=== PATIENT | female | born 1965 | race Caucasian/White ===

== ENCOUNTER 2018-01-17 20:55 | Emergency (ER) | payer BC ==
[2018-01-17] MEDS ORDERED: Ketorolac 30 MG/ML SDV IVPUSH ONE (21:12)
[2018-01-17] MEDS ORDERED: Sodium Chloride 0.9% 1,000 ML IV ONE (21:12)
--- NOTE | 2018-01-17 21:13 | EDM.PDOC ---
ED HPI GENERAL MEDICAL PROBLEM - General Chief Complaint: General Stated Complaint: UPPER RTSIDE PAIN Time Seen by Provider: 01/17/18 21:13 Source of Information: Reports: Patient - History of Present Illness INITIAL COMMENTS - FREE TEXT/NARRATIVE: HISTORY AND PHYSICAL: History of present illness: [Patient presents with cough and fever since yesterday she had an episode of nausea and dizziness just prior to arrival otherwise no actual vomiting chills sweats no chest pain shortness of breath headache dizziness or palpitation no bowel or urine symptoms Generally healthy female no chronic illness disease her medications while here in the ER she had recurrence complained of some discomfort into her left shoulder 1 out of 10 no distress this has been present for several days , this pain can be alleviated by stretching her arm above her head, 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 Past medical history: As per history of present illness and as reviewed below otherwise noncontributory. Surgical history: As per history of present illness and as reviewed below otherwise noncontributory. Social history: No reported history of drug or alcohol abuse. Family history: As per history of present illness and as reviewed below otherwise noncontributory. Physical exam: HEENT: Atraumatic, normocephalic, pupils reactive, negative for conjunctival pallor or scleral icterus, mucous membranes moist, throat clear, neck supple, nontender, trachea midline. Lungs: Clear to auscultation, breath sounds equal bilaterally, chest nontender. Heart: S1S2, regular, negative for clicks, rubs, or JVD. Abdomen: Soft, nondistended, nontender. Negative for masses or hepatosplenomegaly. Negative for costovertebral tenderness. Pelvis: Stable nontender. Genitourinary: Deferred. Rectal: Deferred. Extremities: Atraumatic, negative for cords or calf pain. Neurovascular unremarkable. Neuro: Awake, alert, oriented. Cranial nerves II through XII unremarkable. Cerebellum unremarkable. Motor and sensory unremarkable throughout. Exam nonfocal. Diagnostics: [CBC CMP UA amylase lipase troponin ] Therapeutics: [1 L normal saline Toradol 30 mg IV ] aspirin 324 mg chewable Levaquin 500 mg by mouth now Patient was offered observation admission for telemetry and rule out sepsis history her blood pressure did come down a little bit after fluid bolus but has maintained and returned to her baseline while here she states that normally she does run a little bit low but she is not certain what that his she is comfortable going home and desires to do so she will agrees to return if symptoms persist or worsen or new concerning symptoms develop Impression: Fever UTI] Definitive disposition and diagnosis as appropriate pending reevaluation and review of above. Upper back;left shoulder Pain Score (Numeric/FACES): 5 - Related Data Allergies Allergy/AdvReac Type Severity Reaction Status Date / Time No Known Allergies Allergy Verified 01/17/18 21:15 Home Meds: Home Meds . [No Known Home Meds] 02/27/14 [History] Past Medical History - Past Health History Medical/Surgical History: Denies Medical/Surgical History Social & Family History - Tobacco Use Second Hand Smoke Exposure: No - Alcohol Use Days Per Week of Alcohol Use: 0 - Recreational Drug Use Recreational Drug Use: No ED ROS GENERAL - Review of Systems Review Of Systems: ROS reveals no pertinent complaints other than HPI. ED EXAM, GENERAL - Physical Exam Exam: See Below Course - Vital Signs Last Recorded V/S: Last Vital Signs Temp 101.3 F H 01/17/18 23:35 Pulse 102 H 01/17/18 23:35 Resp 18 01/17/18 23:35 BP 111/57 L 01/17/18 23:35 Pulse Ox 96 01/17/18 23:35 - Orders/Labs/Meds Orders: Active Orders 24 hr Category Date Time Status EKG Documentation Completion [RC] STAT Care 01/17/18 21:12 Active Chest 2V [CR] Stat Exams 01/17/18 21:59 Taken CULTURE BLOOD [BC] Stat Lab 01/17/18 21:32 Received CULTURE BLOOD [BC] Stat Lab 01/17/18 21:43 Received CULTURE URINE [RM] Stat Lab 01/17/18 21:44 Received INFLUENZA A+B AG SCREEN [RM] Stat Lab 01/17/18 21:47 Ordered UA W/MICROSCOPIC [URIN] Stat Lab 01/17/18 21:44 Ordered Blood Culture x2 Reflex Set [OM.PC] Stat Oth 01/17/18 21:29 Ordered Labs: Laboratory Tests 01/17/18 01/17/18 01/17/18 Range/Units 21:43 21:43 21:43 WBC 12.37 H (4.0-11.0) K/uL RBC 4.72 (4.30-5.90) M/uL Hgb 13.8 (12.0-16.0) g/dL Hct 41.0 (36.0-46.0) % MCV 86.9 (80.0-98.0) fL MCH 29.2 (27.0-32.0) pg MCHC 33.7 (31.0-37.0) g/dL RDW Std Deviation 42.0 (28.0-62.0) fl RDW Coeff of Irving 13 (11.0-15.0) % Plt Count 214 (150-400) K/uL MPV 9.00 (7.40-12.00) fL Neut % (Auto) 78.9 (48.0-80.0) % Lymph % (Auto) 12.6 L (16.0-40.0) % Crowley % (Auto) 7.9 (0.0-15.0) % Eos % (Auto) 0.4 (0.0-7.0) % Baso % (Auto) 0.2 (0.0-1.5) % Neut # (Auto) 9.8 H (1.4-5.7) K/uL Lymph # (Auto) 1.6 (0.6-2.4) K/uL Crowley # (Auto) 1.0 H (0.0-0.8) K/uL Eos # (Auto) 0.1 (0.0-0.7) K/uL Baso # (Auto) 0.0 (0.0-0.1) K/uL Nucleated RBC % 0.0 /100WBC Nucleated RBCs # 0 K/uL Lactate 1.0 (0.20-2.00) mmol/L Sodium 136 (136-145) mmol/L Potassium 3.2 L (3.5-5.1) mmol/L Chloride 102 (98-107) mmol/L Carbon Dioxide 25.8 (21.0-32.0) mmol/L BUN 13 (7.0-18.0) mg/dL Creatinine 0.8 (0.6-1.0) mg/dL Est Cr Clr Drug Dosing 79.08 mL/min Estimated GFR (MDRD) > 60.0 ml/min Glucose 124 H (74-106) mg/dL Calcium 9.0 (8.5-10.1) mg/dL Total Bilirubin 0.3 (0.2-1.0) mg/dL AST 18 (15-37) IU/L ALT 20 (14-63) IU/L Alkaline Phosphatase 78 (46-116) U/L Troponin I < 0.050 (0.000-0.056) ng/mL Total Protein 7.3 (6.4-8.2) g/dL Albumin 3.8 (3.4-5.0) g/dL Globulin 3.5 (2.0-3.5) g/dL Albumin/Globulin Ratio 1.1 L (1.3-2.8) Amylase 48 (25-115) U/L Lipase 273 (73-393) U/L Urine Color Urine Appearance Urine pH (5.0-8.0) Ur Specific Franklin (1.001-1.035) Urine Protein (NEGATIVE) mg/dL Urine Glucose (UA) (NEGATIVE) mg/dL Urine Ketones (NEGATIVE) mg/dL Urine Occult Blood (NEGATIVE) Urine Nitrite (NEGATIVE) Urine Bilirubin (NEGATIVE) Urine Urobilinogen (<2.0) EU/dL Ur Leukocyte Esterase (NEGATIVE) Urine RBC (0-2/HPF) Urine WBC (0-5/HPF) Ur Epithelial Cells (NONE-FEW) Urine Bacteria (NEGATIVE) 01/17/18 Range/Units 21:44 WBC (4.0-11.0) K/uL RBC (4.30-5.90) M/uL Hgb (12.0-16.0) g/dL Hct (36.0-46.0) % MCV (80.0-98.0) fL MCH (27.0-32.0) pg MCHC (31.0-37.0) g/dL RDW Std Deviation (28.0-62.0) fl RDW Coeff of Irving (11.0-15.0) % Plt Count (150-400) K/uL MPV (7.40-12.00) fL Neut % (Auto) (48.0-80.0) % Lymph % (Auto) (16.0-40.0) % Crowley % (Auto) (0.0-15.0) % Eos % (Auto) (0.0-7.0) % Baso % (Auto) (0.0-1.5) % Neut # (Auto) (1.4-5.7) K/uL Lymph # (Auto) (0.6-2.4) K/uL Crowley # (Auto) (0.0-0.8) K/uL Eos # (Auto) (0.0-0.7) K/uL Baso # (Auto) (0.0-0.1) K/uL Nucleated RBC % /100WBC Nucleated RBCs # K/uL Lactate (0.20-2.00) mmol/L Sodium (136-145) mmol/L Potassium (3.5-5.1) mmol/L Chloride (98-107) mmol/L Carbon Dioxide (21.0-32.0) mmol/L BUN (7.0-18.0) mg/dL Creatinine (0.6-1.0) mg/dL Est Cr Clr Drug Dosing mL/min Estimated GFR (MDRD) ml/min Glucose (74-106) mg/dL Calcium (8.5-10.1) mg/dL Total Bilirubin (0.2-1.0) mg/dL AST (15-37) IU/L ALT (14-63) IU/L Alkaline Phosphatase (46-116) U/L Troponin I (0.000-0.056) ng/mL Total Protein (6.4-8.2) g/dL Albumin (3.4-5.0) g/dL Globulin (2.0-3.5) g/dL Albumin/Globulin Ratio (1.3-2.8) Amylase (25-115) U/L Lipase (73-393) U/L Urine Color YELLOW Urine Appearance SLT CLOUDY Urine pH 5.5 (5.0-8.0) Ur Specific Franklin >= 1.030 (1.001-1.035) Urine Protein NEGATIVE (NEGATIVE) mg/dL Urine Glucose (UA) NEGATIVE (NEGATIVE) mg/dL Urine Ketones TRACE H (NEGATIVE) mg/dL Urine Occult Blood NEGATIVE (NEGATIVE) Urine Nitrite NEGATIVE (NEGATIVE) Urine Bilirubin NEGATIVE (NEGATIVE) Urine Urobilinogen 0.2 (<2.0) EU/dL Ur Leukocyte Esterase TRACE (NEGATIVE) Urine RBC 1-3 (0-2/HPF) Urine WBC 4-7 (0-5/HPF) Ur Epithelial Cells FEW (NONE-FEW) Urine Bacteria FEW (NEGATIVE) Meds: Medications Discontinued Medications Generic Name Dose Route Start Last Admin Trade Name Leena PRN Reason Stop Dose Admin Aspirin 324 mg 01/17/18 21:38 01/17/18 21:43 Aspirin PO 01/17/18 21:39 324 mg ONETIME ONE Administration Sodium Chloride 1,000 mls @ 999 mls/hr 01/17/18 21:12 01/17/18 21:38 Normal Saline IV 01/17/18 22:12 999 mls/hr STAT ONE Administration Ketorolac Tromethamine 30 mg 01/17/18 21:12 01/17/18 21:57 Toradol IVPUSH 01/17/18 21:13 30 mg ONETIME ONE Administration Levofloxacin 500 mg 01/17/18 23:47 01/17/18 23:51 Levaquin PO 01/17/18 23:48 500 mg ONETIME ONE Administration Departure - Departure Time of Disposition: 00:29 Disposition: Home, Self-Care 01 Condition: Good Clinical Impression: UTI (urinary tract infection) - Discharge Information Referrals: Esvin Olmos MD [Primary Care Provider] - Forms: ED Department Discharge Additional Instructions: Medication as prescribed Return if symptoms persist or worsen or new concerning symptoms develop such as vomiting chills sweats should these develop return to ER for reevaluation Follow-up with primary care in 2 weeks sooner as needed Blood cultures are pending at this time as discussed [facility] [address] [place] [address] The following information is given to patients seen in the emergency department who are being discharged to home. This information is to outline your options for follow-up care. We provide all patients seen in our emergency department with a follow-up referral. The need for follow-up, as well as the timing and circumstances, are variable depending upon the specifics of your emergency department visit. If you don't have a primary care physician on staff, we will provide you with a referral. We always advise you to contact your personal physician following an emergency department visit to inform them of the circumstance of the visit and for follow-up with them and/or the need for any referrals to a consulting specialist. The emergency department will also refer you to a specialist when appropriate. This referral assures that you have the opportunity for follow-up care with a specialist. All of these measure are taken in an effort to provide you with optimal care, which includes your follow-up. Under all circumstances we always encourage you to contact your private physician who remains a resource for coordinating your care. When calling for follow-up care, please make the office aware that this follow-up is from your recent emergency room visit. If for any reason you are refused follow-up, please contact the [facility] emergency department at and asked to speak to the emergency department charge nurse. - My Orders Last 24 Hours: My Active Orders 01/17/18 21:12 EKG Documentation Completion [RC] STAT 01/17/18 21:29 Blood Culture x2 Reflex Set [OM.PC] Stat 01/17/18 21:32 CULTURE BLOOD [BC] Stat 01/17/18 21:43 CULTURE BLOOD [BC] Stat 01/17/18 21:44 CULTURE URINE [RM] Stat UA W/MICROSCOPIC [URIN] Stat 01/17/18 21:47 INFLUENZA A+B AG SCREEN [RM] Stat 01/17/18 21:59 Chest 2V [CR] Stat - Assessment/Plan Last 24 Hours: My Active Orders 01/17/18 21:12 EKG Documentation Completion [RC] STAT 01/17/18 21:29 Blood Culture x2 Reflex Set [OM.PC] Stat 01/17/18 21:32 CULTURE BLOOD [BC] Stat 01/17/18 21:43 CULTURE BLOOD [BC] Stat 01/17/18 21:44 CULTURE URINE [RM] Stat UA W/MICROSCOPIC [URIN] Stat 01/17/18 21:47 INFLUENZA A+B AG SCREEN [RM] Stat 01/17/18 21:59 Chest 2V [CR] Stat
[2018-01-17] MEDS ORDERED: Aspirin 81 MG Tab.Chew PO ONE (21:38)
[2018-01-17 22:09] LABS: CHLORIDE,CL 102 mmol/L (98-107); SODIUM,NA 136 mmol/L (136-145)
[2018-01-17] MEDS ORDERED: Levofloxacin 500 MG Tab PO ONE (23:47)
--- NOTE | 2018-01-19 13:42 | CR ---
EXAM DATE: 01/17/18 PATIENT'S AGE: 52 Patient: JE WASHINGTON Facility: [place], [place] Site . Site : 1965 Study: XRay Chest [id number]/7/2018 10:54:38 PM Ordering Physician: Clayton Tao Final Report: INDICATION: Pain, cough, shortness of breath TECHNIQUE: Chest 2 views. COMPARISON: None FINDINGS: Cardiovascular and mediastinum: Heart size and vasculature are normal in caliber and appearance. Mediastinum is within normal limits. Lungs and pleural spaces: Lungs are clear. No sign of infiltrate or mass. No sign of pleural effusion. No pneumothorax. Bones and soft tissues: No significant findings. IMPRESSION: No sign of acute disease. Dictated by Quynh Aguayo MD @ Jan 17 2018 11:12PM (Electronic Signature) Report Signed by Proxy. [facility] SHOREMicha
== END 2018-01-18 00:35 | disposition home or self-care (01) ==
LOC: MW.ED 20:55
DX: N39.0 Urinary tract infection, site not specified (principal)
CPT/HCPCS: 36415; 71046; 80053; 81001; 82150; 83605; 83690; 84484; 85025; 87040; 87086; 87804; 93005; 96361; 96374; 99284; A9270; J1885; J7040; 99283

== ENCOUNTER 2020-04-19 22:59 | Emergency (ER) | payer BC, OTHER ==
[2020-04-19] MEDS ORDERED: Ketorolac 30 MG/ML SDV IM ONE (23:30)
--- NOTE | 2020-04-19 23:37 | EDM.PDOC ---
ED HPI GENERAL MEDICAL PROBLEM - General Chief Complaint: Lower Extremity Injury/Pain Stated Complaint: KNEE SWELLING Time Seen by Provider: 04/19/20 23:20 - History of Present Illness INITIAL COMMENTS - FREE TEXT/NARRATIVE: History of present illness: 55-year-old female presenting with left knee pain since yesterday. She apparently had a prior ACL injury which was never repaired. 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 Since then she has developed worsening pain and swelling of the knee. She had prior knee swelling which was tapped by an orthopedic surgeon in the past. He has not had any redness, fever or sweats, nor chills. She was able to complete the work-out including performed [employer]. She has been able to ambulate on the leg and knee without difficulty. Review of systems: As per history of present illness and below otherwise all systems reviewed and negative. Past medical history: As per history of present illness and as reviewed below otherwise noncontributory. ACL injury Surgical history: As per history of present illness and as reviewed below otherwise noncontributory. Left knee arthroscopy Social history: No reported history of drug or alcohol abuse. No tobacco Family history: As per history of present illness and as reviewed below otherwise noncontributory. Physical exam: GEN: no acute distress, well appearing HEENT: Atraumatic, normocephalic, mucous membranes moist, Neck: supple. Lungs: No respiratory distress. Heart: RRR Extremities: Left knee tenderness with mild swelling. Full range of motion of the left knee. No ligamentous instability. Lateral knee soft tissue tenderness. No bony tenderness. No erythema. No signs of infection or septic joint. Neurovascularly intact. Neuro: Awake, alert, oriented. Neuro Exam nonfocal. Skin: warm, dry, no lesions, no erythema Diagnostics: [] Therapeutics: [] MDM: Impression: [] Plan: [] Definitive disposition and diagnosis as appropriate pending reevaluation and review of above. left knee Pain Score (Numeric/FACES): 8 - Related Data Allergies Allergy/AdvReac Type Severity Reaction Status Date / Time No Known Allergies Allergy Verified 04/19/20 23:25 Home Meds: Home Meds . [No Known Home Meds] 02/27/14 [History] Past Medical History - Past Health History Medical/Surgical History: Denies Medical/Surgical History HEENT History: Reports: None [employer] History: Reports: Musculoskeletal History: Reports: None Neurological History: Reports: Migraines - Past Surgical History Head Surgeries/Procedures: Reports: None HEENT Surgical History: Reports: Oral Surgery Musculoskeletal Surgical History: Reports: Arthroscopic Knee Social & Family History - Family History Family Medical History: Noncontributory - Tobacco Use Smoking Status *Q: Never Smoker - Recreational Drug Use Recreational Drug Use: No Review of Systems - Review of Systems Review Of Systems: See Below (See HPI) ED EXAM, GENERAL - Physical Exam Exam: See Below (See HPI) Course - Vital Signs Text/Narrative:: Left knee pain/injury/Strain. Unlikely fracture. Patient declined x-rays. Possible repeat ligamentous injury as she had a prior ACL injury in the past that was never repaired. No signs of bony injury as the patient has been able to bear weight and has full and intact range of motion. X-ray not indicated at this time. No signs of infection, emergency department arthroscopy not indicated at this time. Will give pain control with IM Toradol and place compression dressing/George wrap and reassess. Patient felt much better after IM Toradol requested to be discharged home. Urgent referral was placed for orthopedics. George wrap/DME placed for knee sprain Last Recorded V/S: Last Vital Signs Temp 97 F 04/19/20 23:19 Pulse 92 04/19/20 23:19 Resp 19 04/19/20 23:19 BP 134/74 04/19/20 23:19 Pulse Ox 97 04/19/20 23:19 - Orders/Labs/Meds Orders: Active Orders 24 hr Category Date Time Status DME for Discharge [COMM] Stat Oth 04/19/20 23:45 Ordered Meds: Medications Discontinued Medications Generic Name Dose Route Start Last Admin Trade Name Freq PRN Reason Stop Dose Admin Ketorolac Tromethamine 30 mg 04/19/20 23:30 04/19/20 23:36 Toradol IM 04/19/20 23:31 30 mg ONETIME ONE Administration - Re-Assessments/Exams Free Text/Narrative Re-Assessment/Exam: 04/20/20 00:42 Patient is feeling much better. Her pain is well controlled. Compression wrap in place, will refer for orthopedic follow-up. Departure - Departure Time of Disposition: 00:42 Disposition: Home, Self-Care 01 Clinical Impression: Left knee sprain Qualifiers: Encounter type: initial encounter Involved ligament of knee: unspecified ligament Qualified Code(s): S83.92XA - Sprain of unspecified site of left knee, initial encounter - Discharge Information Instructions: Knee Sprain, Adult Referrals: PCP,None [Primary Care Provider] - Forms: ED Department Discharge Additional Instructions: Follow-up with orthopedic clinic as soon as possible to further evaluate your knee. You may keep the compression George wrap on for comfort. You may ice the area. You may take ibuprofen, 600 mg every 8 hours for the next 2 to 3 days and then as needed. The following information is given to patients seen in the emergency department who are being discharged to home. This information is to outline your options for follow-up care. We provide all patients seen in our emergency department with a follow-up referral. The need for follow-up, as well as the timing and circumstances, are variable depending upon the specifics of your emergency department visit. If you don't have a primary care physician on staff, we will provide you with a referral. We always advise you to contact your personal physician following an emergency department visit to inform them of the circumstance of the visit and for follow-up with them and/or the need for any referrals to a consulting specialist. The emergency department will also refer you to a specialist when appropriate. This referral assures that you have the opportunity for follow-up care with a specialist. All of these measure are taken in an effort to provide you with optimal care, which includes your follow-up. Under all circumstances we always encourage you to contact your private physician who remains a resource for coordinating your care. When calling for follow-up care, please make the office aware that this follow-up is from your recent emergency room visit. If for any reason you are refused follow-up, please contact the [facility] Emergency Department at and asked to speak to the emergency department charge nurse. [facility] Professional Building [address] [place] [address], [address] [place] [address] Sepsis Event Note (ED) - Evaluation Sepsis Screening Result: No Definite Risk - Focused Exam Vital Signs: Vital Signs Temp Pulse Resp BP Pulse Ox 04/19/20 23:19 97 F 92 19 134/74 97 - My Orders Last 24 Hours: My Active Orders 04/19/20 23:45 DME for Discharge [COMM] Stat - Assessment/Plan Last 24 Hours: My Active Orders 04/19/20 23:45 DME for Discharge [COMM] Stat
== END 2020-04-20 00:50 | disposition home or self-care (01) ==
LOC: MW.ED 22:59
DX: S83.92XA Sprain of unspecified site of left knee, initial encounter (principal); X50.1XXA Overexertion from prolonged static or awkward postures, initial encounter
CPT/HCPCS: 96372; 99283; J1885; 99282

== ENCOUNTER 2024-08-19 00:23 | Emergency (ER) | payer BC ==
[2024-08-19] MEDS: Pantoprazole 40 MG in Sodium Chloride 0.9% 10 ML IVPUSH ONE (00:46)
[2024-08-19] MEDS: Sodium Chloride 0.9% 10 ML Syringe FLUSH PRN (00:46)
[2024-08-19 00:53] LABS: BASOPHILS ABSOLUTE AUTO 0.05 K/uL (0.00-0.20); BASOPHILS PERCENT AUTO 0.7 % (0.0-1.0); EOSINOPHILS ABSOLUTE AUTO 0.09 K/uL (0.00-0.45); EOSINOPHILS PERCENT AUTO 1.3 % (0.0-6.0); HEMOGLOBIN 14.6 g/dL (12.0-16.0); IMMATURE GRAN ABSOLUTE AUTO 0.02 K/uL (0.00-0.05); IMMATURE GRAN PERCENT AUTO 0.3 % (0.0-0.4); LYMPHOCYTES PERCENT AUTO 40.9 % (24.0-44.0); MEAN CORPUSCULAR HEMOGLOBIN 30.2 pg (28.0-32.0); MEAN CORPUSCULAR HGB CONC 34.8 g/dL (32.0-36.0); MEAN PLATELET VOLUME 8.8 fL (9.4-12.3); MONOCYTES ABSOLUTE AUTO 0.55 K/uL (0.00-0.80); MONOCYTES PERCENT AUTO 7.8 % (0.0-8.0); NEUTROPHILS ABSOLUTE AUTO 3.48 K/uL (1.80-7.70); PLATELET COUNT,PLT 246 K/uL (150-400); RED BLOOD CELL COUNT 4.83 M/uL (4.10-5.30); WHITE BLOOD CELL COUNT,WBC 7.09 K/uL (3.9-11.3)
[2024-08-19 01:34] LABS: A/G RATIO 1.3 (0.9-1.6); ALANINE AMINOTRANSFERASE,ALT 25 IU/L (14-63); ALBUMIN 4.3 g/dL (3.4-5.0); ALKALINE PHOSPHATASE 100 U/L (46-116); ASPARTATE AMNIOTRANSFERASE,AST 20 IU/L (15-37); BILIRUBIN TOTAL 0.5 mg/dL (0.2-1.0); BLOOD UREA NITROGEN,BUN 12 mg/dL (7.0-18.0); CALCIUM 9.4 mg/dL (8.5-10.1); CARBON DIOXIDE,CO2 27.3 mmol/L (21.0-32.0); CHLORIDE,CL 102 mmol/L (98-107); CREATININE 0.9 mg/dL (0.6-1.0); GLUCOSE RANDOM 118 mg/dL (74-106); LIPASE 83 U/L (16-77); POTASSIUM,K 3.1 mmol/L (3.5-5.1); PRO B-TYPE NATRIUR PEPT,BNPPRO 120 pg/mL (0-125); PROTEIN TOTAL,TP 7.7 g/dL (6.4-8.2); SODIUM,NA 139 mmol/L (136-145)
[2024-08-19 01:35] LABS: ESTIMATED GFR 73 mL/min (>60)
[2024-08-19] MEDS: Potassium Chloride 20 MEQ Tab.ER PO ONE (02:10)
[2024-08-19] MEDS: Alum Hydrox/Mag Hydrox/Simeth 15 ML, Metoclopramide 5 MG, Lidocaine 2% 5 ML PO ONE (02:10)
== END 2024-08-19 03:25 | disposition home or self-care (01) ==
LOC: MW.ED 00:23
DX: R12 Heartburn (principal); R07.9 Chest pain, unspecified; R00.2 Palpitations; E87.6 Hypokalemia; Z79.899 Other long term (current) drug therapy; Z75.8 Other problems related to medical facilities and other health care
CPT/HCPCS: 36415; 71045; 80053; 83690; 83735; 83880; 84484; 85025; 93005; 96374; 99285; A9270; J2470; J3490; 93010